=== PATIENT | male | born 1985 | race Caucasian/White ===

== ENCOUNTER → 2021-10-11 11:55 | Outpatient (CLI) | payer OTHER, SELFPAY ==
[2021-10-11 14:17] LABS: COVID19 -Nasal RAPID Negative (Negative)
== END ==
PROVIDERS: Referring Provider Physician Assistant; Visit Provider Physician Assistant
DX: Z20.822 Contact with and (suspected) exposure to COVID-19 (principal)
CPT/HCPCS: 87635

== ENCOUNTER 2021-10-14 07:42 | Day surgery (SDC) | payer OTHER, SELFPAY ==
[2021-10-12 12:13] VITALS: BMI 23.7
[2021-10-14] VITALS (11 sets, daily range): BP systolic 103–125; BP diastolic 42–78; PULSE 60–73; RESP 12–16; TEMP 36.4–36.6; O2SAT 97–100; BMI 23.7
--- NOTE | 2021-10-14 | DI.RAD.S_ITS ---
PROCEDURE: XR LUMBAR SPINE 1V INDICATIONS: L3-4 L5-S1 DISCETOMY TECHNIQUE: 1 views of the lumbar spine were acquired. COMPARISON: [facility] Outside Film, MR, MR LUMBAR SPINE WITHOUT CONTRAST, 07/01/2021, 7:16. [facility] Outside Film, CR, XR LUMBAR SPINE WITH OBLIQUES, 03/25/2020, 14:26. FINDINGS: Fluoroscopic images demonstrating markers overlying the spinous processes of L4 and L5. IMPRESSION: Fluoroscopic markers as above. Dictated by: Agnieszka White M.D. on 10/14/2021 at 15:00 Approved by: Agnieszka White M.D. on 10/14/2021 at 15:00
--- NOTE | 2021-10-14 07:56 | SUR.OPER ---
Prone on spine table, head in foam head support, padded chest and pelvic supports, gel pad at knees, lower legs supported by pillows; nipples, genitalia and toes free of pressure, arms secured on foam padded arm boards at <90 degrees abduction. Tape over blanket at thigh secured to table.
[2021-10-14] MEDS: LACTATED RINGERS 1,000 ML 42 ML IV (08:21)
--- NOTE | 2021-10-14 08:35 | PM.PREOP ---
Pre-operative Note COVID-19 COVID-19 status: Negative Result date/Date tested (Pos, Neg/Pending): 10/12/21 Interval Note History & Physical reviewed/Exam performed by Physician: Yes Changes to H&P: No
[2021-10-14] MEDS: CEFAZOLIN 2 GM/20 ML SYRINGE IV (09:00)
[2021-10-14] MEDS: EPINEPHrine 1 MG/ML 0.15 MG INJ (09:13)
[2021-10-14] MEDS: BUPIVACAINE 0.5% (PF) VIAL 30 ML INJ (09:13)
[2021-10-14] MEDS: methylPREDNISolone acet DEPO 40 MG/ML VIAL INJ (09:14)
--- NOTE | 2021-10-14 10:18 | P.OP_ITS ---
Operative Date/Time/Diagnoses Date of procedure: 10/14/21 Time of procedure: 08:45 Pre-op diagnosis: 1. L3-4, L5-S1 disc herniation 2. Lumbar radiculopathy Post-op diagnosis: same Procedure & Clinicians Procedure: 1. L3-4, L5-S1 left microdiscectomy through separate incisions 2. Utilization of microsurgical technique and operating microscope Same procedure as scheduled: Yes Indications: Patient has been having chronic back pain and worsening lumbar radiculopathy. Patient failed multiple conservative management with worsening pain weakness and numbness in her lower extremity. Patient has been having difficulty performing activity of daily living. After discussing risks benefits of treatment options, patient elected proceed with surgery. Surgeon: Sanju Gomez Churn Operator Margarine: Angelito Sung Click Yes if Unassisted: No Anesthesia Type: General Operative Notes Closure Type: primary Specimen(s): none sent Estimated Blood Loss (mL): 5 Blood products transfused: none Procedure in detail: Patient was seen in the preoperative area. Risks and benefits of the surgery was discussed with the patient. Informed consent was obtained from the patient and placed in the chart. Surgical site was marked. Patient was taken to the operative room. General anesthesia was administered. Prophylactic antibiotic was given to the patient less than 30 min before the incision was made. Patient was placed into a prone position on the Ronaldo table. Patient's back was then prepped and draped in the sterile fashion. Time-out was performed at this time. Using AP and lateral C-arm imaging the interval between L5-S1 was identified and marked on patient's back. A 1 inch incision 1 in from midline was made on the left side. The fascia was incised in line with skin incision. Globus MARS retractors was placed inside the incision and docked onto the L5 lamina. Using microsurgical technique and operating microscope, a [] laminotomy was performed using a Kerrison rongeur. Liagamentum flavum was resected at the site of the laminotomy. The disc space at L5-S1 was identified. Microdiscectomy was performed by incising the annulus with #11 blade. Microcurettes and pituitary was used to removed herniated disc fragments of disc from the epidural space. After the microdiskectomy at L5-S1 was completed, the area medial lateral superior and inferior to the area of the microdiskectomy was inspected and explored using a micro curette. No other impinging structure was identified. A separate incision was made over the L3-4 level. The MARs retractor was then redirected over the L3-4 level under x-ray guidance and docked on the L3 lamina. Using microsurgical technique and operating microscope, a L3 laminotomy was performed using a Kerrison rongeur. Liagamentum flavum was resected at the site of the laminotomy. The disc space at L3-4 was identified. Microdiscectomy was performed by incising the annulus with #11 blade. Microcurettes and pituitary was used to removed herniated disc fragments of disc from the epidural space. After the microdiskectomy at L3-4 was completed, the area medial lateral superior and inferior to the area of the microdiskectomy was inspected and explored using a micro curette. No other impinging structure was identified. The wound was then irrigated with sterile normal saline. 40 mg Depo-Medrol was placed into the epidural space. The deep fascia was closed with 1-0 Vicryl. The subcutaneous tissue was closed with 2-0 Vicryl. The skin was closed with skin manjinder. Patient tolerated the procedure well. There were no complications. Patient was transferred recovery room in stable condition. Complications: none Post-operative Condition: stable Disposition: PACU Plan for aftercare: Discharge to home
[2021-10-14] MEDS: fentaNYL 100 MCG/2 ML INJ IV ×2 (10:43→10:56)
[2021-10-14] MEDS: OXYCODONE IR 5 MG TABLET PO (11:00)
[2021-10-14] MEDS: ACETAMINOPHEN 325 MG TABLET 650 MG PO (11:02)
== END 2021-10-14 11:53 | disposition home or self-care (01) ==
PROVIDERS: Referring Provider Orthopaedic Surgery Orthopaedic Surgery of the Spine; Visit Provider Orthopaedic Surgery Orthopaedic Surgery of the Spine
PROC: (CPT 63030; principal; 2021-10-14 08:45)
DX: M51.16 Intervertebral disc disorders with radiculopathy, lumbar region (principal); F17.210 Nicotine dependence, cigarettes, uncomplicated
CPT/HCPCS: 63030; 63035; 72020; 76000; 82962; J0171; J0690; J1030; J1100; J2405; J2704; J3010

== ENCOUNTER 2023-12-28 11:19 | Inpatient (IN) | payer OTHER, SELFPAY ==
[2023-12-16 09:12] VITALS: BMI 23.1
[2023-12-28] VITALS (11 sets, daily range): BP systolic 115–135; BP diastolic 69–95; PULSE 61–89; RESP 12–20; TEMP 36.1–37.2; O2SAT 97–100; BMI 23.1; BMI 25.3
--- NOTE | 2023-12-28 | DI.RAD.S_ITS ---
PROCEDURE: XR LUMBAR SPINE 2-3V INDICATIONS: L5-S1 TLIF TECHNIQUE: 2 views of the lumbar spine were acquired. FINDINGS\IMPRESSION: Intraoperative images; see operative note for description 1 minutes 40 seconds of fluoro time. Two fluoroscopic images provided Approved by: Bigg Morales M.D. on 12/28/2023 at 16:05
[2023-12-28] MEDS: LACTATED RINGERS 1,000 ML 42 ML IV ×2 (12:01→15:32)
--- NOTE | 2023-12-28 12:16 | PM.OP.1 ---
Operative Date/Time/Diagnoses Date of procedure: 12/28/23 Time of procedure: 12:17
--- NOTE | 2023-12-28 12:17 | P.HP_ITS ---
History of Present Illness History of Present Illness Date Patient Seen: 12/28/23 Time Patient Seen: 12:17 Date of Onset of Symptoms: 10/04/23 Chief complaint: left sided drop foot Narrative: Mr. Brown is 2 years s/p microdiscectomy with recurrent disc herniation at L5-S1 level with newly developed drop foot on the left side. He did not respond to conservative management with persisting left LE weakness, numbness and radiating pain. After discussing treatment options with associated risks, patient elected to proceed with L5-S1 TLIF surgery. [facility] Medical History Current every day smoker History of COVID-19 (~2021) Asthma Lumbar disc herniation Back pain Surgical History History of surgery on arm Hx of microdiscectomy (10/14/21) Social History household members: none Smoking Status: Current some day smoker alcohol intake: current Meds Home Medications and Allergies Home Medications Medication Instructions Recorded Confirmed Type tramadol 50 mg tablet 50 mg PO BID PRN Pain 12/16/23 12/28/23 History varenicline 1 mg tablet (Chantix) 1.5 mg PO BID 12/16/23 12/28/23 History Allergies Allergy/AdvReac Type Severity Reaction Status Date / Time No Known Drug Allergies Allergy Verified 12/28/23 11:48 Review of Systems Review of Systems ROS: Yes All systems reviewed with the patient and are negative except as otherwise documented Exam Vital Signs (past 8 hours): - 12/28/23 12:02 Temperature 97.6 F Pulse Rate 61 Respiratory Rate 20 Blood Pressure 115/72 Pulse Oximetry 98 Oxygen Delivery Method Room Air Oxygen Delivery Method Room Air Neuro Other: + straight leg raise to LLE Motor strength 0/5 in L TA Sensiblity decreased to LLE in L4, L5, S1 dermatome Objective Imaging MRI - lumbar: My impression: MRI L-spine: large L5-S1 recurrent disc herniation with compression of left L4, L5, S1 nerve roots and thecal sac. Previous hemilaminectomy at L3-4, L5-S1 with epidural scarring. Assessment & Plan Assessment & Plan narrative: Mr. Brown is here for f/u of his lumbar MRI. On exam, he has significant drop foot and inability to extend his left toe since 6 weeks ago. He has 0/5 left EHL and 0/5 TA on the left with decreased sensibility to left L4, L5, S1 dermatome. I reviewed his MRI with him. He has a large extruded disc at L5-S1 with cephalad migration affecting left L4, L5 and S1 nerve roots with significant compression. I discussed treatment options with risks and benefits. Patient may benefit from L5-S1 TLIF surgery with repeat laminectomy and facetecomies, which will render his L5-S1 grossly unstable and require a fusion procedure at the same time. He had prior L3-4, L5-S1 microdiscectomy in 2020 with complete resolution of his symptoms then. He started to recurrence of symptoms in August and developed the drop foot on 09/20/2023.
--- NOTE | 2023-12-28 12:29 | P.OP_ITS ---
Operative Date/Time/Diagnoses Date of procedure: 12/28/23 Time of procedure: 12:30 Pre-op diagnosis: 1. L5-S1 recurrent disc herniation with previous microdiscectomy 2. left sided drop foot Post-op diagnosis: same Procedure & Clinicians Procedure: 1. L5-S1 Postero-lateral and posterior interbody fusion 2. L5-S1 interbody cage placement. 3. L5-S1 decompressive laminectomy with bilateral facetecomies 4. L5-S1 Posterior non-segmental instrumentation 5. [place] of bone marrow from iliac crest 6. Utilization of microsurgical technique and operating microscope Same procedure as scheduled: Yes Indications: Patient has been having chronic back pain and acute onset lumbar radiculopathy with left-sided drop foot and numbness tingling and pain to the left lower extremity since September of 2023. Patient was found to have a large extruded/herniated disc at L5-S1 with left- sided L4-L5 and S1 nerve root impingement. Patient is 2 years post microdiscectomy at L5-S1 level and has been doing well until 2 months ago. Patient failed multiple conservative management with worsening pain weakness and numbness in his lower extremity. Patient has been having difficulty performing activity of daily living. After discussing risks benefits of treatment options, patient elected proceed with surgery. Patient's surgery was not able to be scheduled sooner due to delay in patient's surgery authorization. Surgeon: Sanju Gomez Quality Facilitator: Jeanette White Click Yes if Unassisted: No Anesthesia Type: General Operative Notes Closure Type: primary Specimen(s): none sent Prosthetic devices, grafts, tissues, transplants, or devices: Globus revolve screws, Rise cage Estimated Blood Loss (mL): 50 Blood products transfused: none Procedure in detail: Patient was seen in the preoperative area. Risks and benefits of the surgery was discussed with the patient. Informed consent was obtained from the patient and placed in the chart. Surgical site was marked. Patient was taken to the operative room. General anesthesia was administered. Prophylactic antibiotic was given to the patient less than 30 min before the incision was made. Patient was placed into a prone position on the Ronaldo table. Patient's back was then prepped and draped in the sterile fashion. Time-out was performed at this time. Using AP and lateral C-arm imaging the interval between L5-S1 was identified and marked on patient's back. A 2 inch incision 2 in from midline was made on the left side first. The fascia was incised in line with skin incision. Globus MARS retractors was placed inside the incision and docked onto the L5 lamina. Using microsurgical technique and operating microscope, a L5 laminectomy and L5-S1 facetectomy was performed using a Kerrison rongeur. The laminectomy and facetectomy was performed in order to decompress patient's cauda equina as well as the nerve roots exiting at the L5-S1 level. The disc space at L5-S1 was identified. And a total diskectomy was performed at L5-S1 level. The endplates were decorticated using a rasp and shaver. Patient was found to have significant amount of epidural scarring from previous microdiskectomy which was carefully resected during the process of decompression. The thecal sac and the nerve roots were carefully protected during the process of the decompression as well as the diskectomy. The total diskectomy and decortication was performed at L5-S1 level in order to to accomplish a L5-S1 fusion. The local bone from the laminectomy and facetectomy was saved for local bone grafting. After the total diskectomy and decortication was completed, DBM bone graft material was combined with local bone that was harvested earlier. At this time, a separate skin is incision was made over the iliac crest. A Jamshidi needle was inserted into the iliac crest through a separate skin incision. 5 cc of bone marrow aspiration was obtained through the separate skin incision using a Jamshidi needle from the iliac crest. The bone marrow aspiration was combined with local bone and the DBM bone grafting material. The bone grafting material was placed into the L5- S1 interbody space along with a expandable cage. The cage was expanded to its maximum height using the torque limiting screwdriver. At this time a mirror image incision was made on the left side. The fascia was incised in line with the skin incision. Globus MARS retractor was inserted and docked onto the L5-S1 posterolateral gutter. Using the power drill, posterior- lateral decortication was performed at L5-S1 level until bleeding cortical bone was identified. The remaining bone grafting material was placed into the L5-S1 posterior lateral gutter he order to accomplish posterolateral fusion at the L5- S1 level. Using the double C-arm technique, pedicle screws were placed into the L5-S1 pedicles bilaterally. This was done by placing the Jamshidi needle into the pedicles, then placing the guidewires over the Jamshidi needle, and finally placing the cannulated screws over the guidewires bilaterally. After the pedicle screws were placed, 2 titanium rods was locked into the heads of the pedicle screws using locking caps and torque limiting screwdriver. After all the hardware was placed, and confirmed with AP and lateral C-arm imaging, the wound was then irrigated with sterile normal saline and packed with Ray-Elsa gauze for 3 min to accomplish hemostasis. After the gauze was removed the deep fascia was closed with #1 Vicryl suture. The subcutaneous layer was closed with 2-0 Vicryl. The skin was closed with skin manjinder. Patient tolerated the procedure well. There were no complications. Post-operative Condition: stable Disposition: PACU Plan for aftercare: Admit to inpatient hospital
[2023-12-28] MEDS: CEFAZOLIN 2 GM/100 ML PREMIX 100 ML IV ×2 (12:52→20:42)
[2023-12-28] MEDS: BUPIVACAINE LIPOSOME 266 MG/20 ML VIAL INJ (13:09)
[2023-12-28] MEDS: BUPIVACAINE 0.25% (PF) 30 ML, EPINEPHrine 0.15 MG INJ (13:09)
[2023-12-28] MEDS: fentaNYL 100 MCG/2 ML INJ IV (15:25)
[2023-12-28] MEDS: HYDROMORPHONE 1 MG INJ IV (15:30)
[2023-12-28] MEDS: hydrOXYzine 50 MG/ML INJ 25 MG IM (15:37)
[2023-12-28] MEDS: OXYCODONE/ACETAMINOPHEN 5/325 TABLET 1 TAB PO (15:44)
[2023-12-28] MEDS: LACTATED RINGERS 1,000 ML 125 ML IV (16:26)
[2023-12-28] MEDS: HYDROMORPHONE 0.5 MG INJ IV ×2 (16:42→20:41)
[2023-12-28] MEDS: OXYCODONE IR 10 MG TABLET PO ×3 (16:42→23:09)
[2023-12-28] MEDS: SENNOSIDES 8.6 MG TABLET 17.2 MG PO (20:42)
[2023-12-28] MEDS: DOCUSATE 100 MG CAPSULE PO (20:42)
[2023-12-28] MEDS: ACETAMINOPHEN 325 MG TABLET 650 MG PO (20:42)
[2023-12-29] MEDS: LACTATED RINGERS 1,000 ML 125 ML IV (00:20)
[2023-12-29] MEDS: HYDROMORPHONE 0.5 MG INJ IV ×4 (00:37→08:57)
--- NOTE | 2023-12-29 01:19 | PC.NURSE ---
Pt. ambulated in the hallway x2 this shift.
[2023-12-29] MEDS: OXYCODONE IR 10 MG TABLET PO ×2 (01:54→06:00)
[2023-12-29] MEDS: ACETAMINOPHEN 325 MG TABLET 650 MG PO ×2 (01:55→06:52)
[2023-12-29] MEDS: CEFAZOLIN 2 GM/100 ML PREMIX 100 ML IV (04:38)
[2023-12-29 05:20] VITALS: BP 107/64; PULSE 72; RESP 18; TEMP 36.5; O2SAT 96
--- NOTE | 2023-12-29 07:51 | PM.DS.1 ---
History of Present Illness History of Present Illness Date Patient Seen: 12/29/23 Time Patient Seen: 07:51 Chief complaint: Back pain Narrative: Back pain has been moderate to severe. Denies fever or chills. No nausea or vomiting. Patient has friends I will be staying with him. Patient has been up out of bed. Patient able to urinate on his own. Discharge Providers Provider Date of admission: 12/28/23 11:19 Discharge Date: 12/29/23 Primary care physician: FELI Verma Consults: 12/28/23 16:06 Consult to Occupational Therapy Evaluate & Treat Comment: Physician Instructions: Evaluate and treat Consult to Physical Therapy Evaluate & Treat Comment: Physician Instructions: Evaluate and Treat Discharge provider: Angelito Sung PA-C Summary Hospital Course Discharge Diagnosis: 1. L5-S1 recurrent disc herniation with previous microdiscectomy 2. left sided drop foot Hospital Course: 1. L5-S1 Postero-lateral and posterior interbody fusion 2. L5-S1 interbody cage placement. 3. L5-S1 decompressive laminectomy with bilateral facetecomies 4. L5-S1 Posterior non-segmental instrumentation 5. [place] of bone marrow from iliac crest 6. Utilization of microsurgical technique and operating microscope Same procedure as scheduled: Yes Indications: Patient has been having chronic back pain and acute onset lumbar radiculopathy with left-sided drop foot and numbness tingling and pain to the left lower extremity since September of 2023. Patient was found to have a large extruded/herniated disc at L5-S1 with left-sided L4-L5 and S1 nerve root impingement. Patient is 2 years post microdiscectomy at L5-S1 level and has been doing well until 2 months ago. Patient failed multiple conservative management with worsening pain weakness and numbness in his lower extremity. Patient has been having difficulty performing activity of daily living. After discussing risks benefits of treatment options, patient elected proceed with surgery. Patient's surgery was not able to be scheduled sooner due to delay in patient's surgery authorization. Surgeon: Sanju Gomez Fretted String Instrument Repairer: Jeanette White Click Yes if Unassisted: No Anesthesia Type: General Operative Notes Closure Type: primary Specimen(s): none sent Prosthetic devices, grafts, tissues, transplants, or devices: Globus revolve screws, Rise cage Estimated Blood Loss (mL): 50 Blood products transfused: none Patient admitted to the hospital for the above-mentioned procedure. Patient consented to the same. Patient underwent L5-S1 posterolateral and interbody fusion December 28, 2023. Patient has been up in his room walking. Urinating on his own. Pain is under control. Patient will be discharged home after physical therapy if safe for home environment. Exam Vital Signs (past 8 hours): - 12/29/23 05:20 Temperature 97.7 F Pulse Rate 72 Respiratory Rate 18 Blood Pressure 107/64 Pulse Oximetry 96 Oxygen Delivery Method Room Air Oxygen Flow Rate 0 Narrative Exam Narrative: 38-year-old male resting comfortably in bed in no apparent distress. 5/5 strength right lower extremity. Patient has weakness with great toe extension on the left. Slightly diminished sensation over the dorsum of the left foot compared to the right. Patient able to plantar flex and dorsiflex left foot. Const General: cooperative and comfortable Nutritional Appearance: average body habitus Orientation: oriented x3 Chest Chest: normal inspection of the chest and normal palpation of entire chest wall PFSH Medical History Current every day smoker History of COVID-19 (~2021) Asthma Lumbar disc herniation Back pain Surgical History History of surgery on arm Hx of microdiscectomy (10/14/21) Social History household members: none Smoking Status: Current some day smoker alcohol intake: current Discharge Assessment & Plan Assessment and Plan Assessment: Patient progressing as expected status post L5-S1 fusion Plan of Treatment: Multimodal pain management Keep dressing clean and dry Limit bending, twisting, lifting Follow up outpatient Orthopedics in 2 weeks Discharge home today after physical therapy. Discharge Plan Discharge orders & Medications Discharge Orders: Discharge (Order); Ordered 12/29/23 Ordered By: Angelito Sung Prescriptions: New acetaminophen 325 mg Tablet 650 mg PO Q6H PRN (Reason: Fever/Mild Pain (1-3)) Qty: 60 0RF oxycodone 10 mg Tablet 10 mg PO Q3H PRN (Reason: Pain, Severe (7-10)) Qty: 40 0RF Continued varenicline [Chantix] 1 mg Tablet 1.5 mg PO BID Discontinued tramadol 50 mg Tablet 50 mg PO BID PRN (Reason: Pain) Follow up/Referrals: Real Juarez ARNP [Primary Care Provider] - Sanju Gomez MD [Physician] - (2 weeks as scheduled) Diet/Activity/Treatments Diet: Diet as Tolerated Activity: Limit bending, twisting, lifting Skin/Wound/Dressing Care Report to your healthcare provider any signs of infection, such as:: chills, fever, night sweats, increased pain, unusual drainage and unusual redness Dressing: Keep dressing clean and dry Visit Report/Discharge Packet Instructions: DI for Prescription Opioid Use, DI for Transforaminal Lumbar Interbody Fusion Stand Alone Forms: Patient Portal/API, Stroke Signs & Symptoms Discharge Data Primary Care Provider: Real Juarez
--- NOTE | 2023-12-29 08:37 | PT.IIE ---
Current Diagnoses Other intervertebral disc displacement, lumbar region (12/28/23) Other specified postprocedural states (12/28/23) Surgery Performed Operation Date: 12/28/23 13:15 Actual Procedures p L5-S1 TLIF(Not Applicable) - Sanju Gomez MD Surgical History (Last Reviewed 12/29/23 @ 07:54 by Angelito Sung PA-C) History of surgery on arm Hx of microdiscectomy (10/14/21) Medical History (Last Reviewed 12/29/23 @ 07:54 by Angelito Sung PA-C) Asthma Back pain Current every day smoker History of COVID-19 (~2021) Lumbar disc herniation Physical Therapy Inpatient Evaluation/Re-Eval M1 PT/OT-IP Prior Functional Status Start: 12/29/23 08:10 Freq: NEEDED Status: Active Protocol: Document 12/29/23 08:10 MB (Rec: 12/29/23 08:37 MB [id number]) Medical Review Prior Functional Status Medical History Reviewed Yes Diet/Fluid Consistency Regular Communication WNLs Mobility and Gait I Activities of Daily Living and IADL's I Prior Functional Level (Other details) 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 Additional Social History Comment Portable shower seat M2 PT-IP Current Condition Start: 12/29/23 08:10 Freq: NEEDED Status: Active Protocol: Document 12/29/23 08:10 MB (Rec: 12/29/23 08:37 MB [id number]) Physical Therapy Current Condition Current Condition Evaluation Date 12/29/23 Treatment Diagnosis L5-S1 fusion, history of discectomy Onset Date 12/28/23 M3 PT-IP Subjective Start: 12/29/23 08:10 Freq: NEEDED Status: Active Protocol: Document 12/29/23 08:10 MB (Rec: 12/29/23 08:37 MB [id number]) Subjective Physical Therapy Visit Type Type Initial Evaluation Visit Start Time 08:10 Visit Stop Time 08:24 Number of DRUG COORDINATOR Visits 0 Physical Therapy Visit Comments Patient Comments Pt states that he is ready to go home and that he has some changes and increased sensation in his left distal leg post-op. Therapy Pain Assessment Pain When Pain Assessed At Rest Pain Present Pain Present Pain Reported Location back Intensity 1 Scale Used Evi (Faces) M4 PT-IP Mobility and Gait Start: 12/29/23 08:10 Freq: NEEDED Status: Active Protocol: Document 12/29/23 08:10 MB (Rec: 12/29/23 08:37 MB [id number]) PT-Bed Mobility Assessment Rolling Type of Rolling Log Rolling Level of Assist Independent Supine to Sit Supine to Sit Independent Sit to Supine Sit to Supine Independent Scooting Scooting to Edge of Bed Independent PT-Transfer Assessment Sit to and From Stand Sit to and from Stand Independent Equipment Transfer Assistive Device None Orthotic/Prosthetic Devices or Brace: No Transfer Ability Level of Assist Independent Gait Assessment Gait Gait Assistance Required: Independent Distance (Feet) 100 Able to Maintain Weight Bearing Status Yes During Gait Assistive Devices Assistive Device None Orthotic/Prosthetic Devices or Brace: No Factors Limiting Gait Function Factors Limiting Gait Function Abnormal Tonal Influences, Decreased Strength Comments Gait Comments Pt has tone changes in distal LLE with some functional foot drop that is more noticeable with gait returning to room ( after being up on his feet greater than 100'). He is I with gait and has wide LUTHER and good shaye. Stair Climbing Assessment Evaluation Level of Assist On Stairs Independent Devices Stair Climbing Assistive Devices Left Railing,Right Railing Technique/Endurance Stair Climbing Direction Ascend and Descend Stair Climbing Technique Step Over Step Number of Steps Climbed 3 Query Text: Stair Climbing Set # Repetitions (reps) 1 PT-Balance Assessment Sitting Balance and Reactions Static Sitting Balance Ability Normal Dynamic Sitting Balance Ability Normal Standing Balance and Reactions Static Standing Balance Ability Normal Dynamic Standing Balance Ability Good Device Used None M5 PT-IP Objective Assessments Start: 12/29/23 08:10 Freq: NEEDED Status: Active Protocol: Document 12/29/23 08:10 MB (Rec: 12/29/23 08:37 MB [id number]) Orientation Orientation/Cognition Level of Alertness Alert Orientation Name,Age,Birthday,Month,Date, Year,Day of Week,Place, Situation Language Function Ability No Deficits Noted Safety Awareness Understands Safety Issues Memory Description No Deficits Noted Gross Range of Motion Upper Extremity ROM Assessment Within Functional Limits Impairments Pt has history of left UE nerve surgery and he has a scar near his biceps Lower Extremity ROM Assessment Left Impaired Impairments Scar down back of left leg from previous grafting and pt has some tonal changes in ankle PFs and decreased ankle DF and toe extension Strength Lower Extremity Strength Assessment Left Impaired Ankle Does not follow MMT commands/ tends to keep trying to wiggle ankle and toes Sensation Assessment Sensation Gross Sensation Left LE Impaired Light Touch Impaired Proprioception (Position) Impaired Sensation Description Paresthesia,Numbness M6 PT-IP Treatment Start: 12/29/23 08:10 Freq: NEEDED Status: Active Protocol: Document 12/29/23 08:10 MB (Rec: 12/29/23 08:37 MB [id number]) Physical Therapy Treatment Education Education Provided Safety Equipment Issued Equipment Type and Company OT is taking in post-op packet to review, log rolling with PT, pt with history of microdisectomy M7 PT-IP Assessment and Plan Start: 12/29/23 08:10 Freq: NEEDED Status: Active Protocol: Document 12/29/23 08:10 MB (Rec: 12/29/23 08:37 MB [id number]) PT Summary Assessment and Plan Potential Rehabilitation Potential Good Status of Condition at Evaluation Evolving Summary Impairments Pain,Strength,Balance,Tone Progress Towards Goals Safe For Discharge Assessment Summary Pt is a 38 y/o male presenting with I bed mobility, transfers, gait, stair mobility post-op L5-S1 fusion last date. He has a history of microdiscectomy. He has OPPT set-up 6 weeks out in [place] where he lives. 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 He is I with log rolling today after education. OT following PT to review post-op booklet with other back precautions. Pt wishing to eat after PT. Frequency of Treatment Frequency Of Treatment Discharge Precautions Lumbar Precautions Log Roll,No Twisting,Limit Bending,Lifting Restriction of 10 lbs,Gait Belt above Incisional Area Weight Bearing Status Weight Bearing Status Weight Bear as Tolerated Recommendations To Nursing Amount of Assist Needed Standby Assistance Discharge Recommendations PT Discharge Recommendations Outpatient PT Transportation Needs at Discharge Private Vehicle
--- NOTE | 2023-12-29 08:45 | OT.IP.EVAL ---
Current Diagnoses Other intervertebral disc displacement, lumbar region (12/28/23) Other specified postprocedural states (12/28/23) Surgery Performed Operation Date: 12/28/23 13:15 Actual Procedures p L5-S1 TLIF(Not Applicable) - Sanju Gomez MD Past Medical History (Last Reviewed 12/29/23 @ 07:54 by Angelito Sung PA-C) Asthma Back pain Current every day smoker History of COVID-19 (~2021) Lumbar disc herniation Surgical History (Last Reviewed 12/29/23 @ 07:54 by Angelito Sung PA-C) History of surgery on arm Hx of microdiscectomy (10/14/21) Occupational Therapy Inpatient Evaluation/Re-Eval M1 PT/OT-IP Prior Functional Status Start: 12/29/23 08:47 Freq: NEEDED Status: Active Protocol: Document 12/29/23 08:15 [facility] (Rec: 12/29/23 08:57 [facility] [id number]) Medical Review Prior Functional Status Medical History Reviewed Yes Diet/Fluid Consistency Regular Communication WNLs Mobility and Gait I Activities of Daily Living and IADL's I Prior Functional Level (Other details) 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 Additional Social History Comment Portable shower seat M2 OT-IP Current Condition Start: 12/29/23 08:47 Freq: Status: Active Protocol: Document 12/29/23 08:15 [facility] (Rec: 12/29/23 08:57 [facility] [id number]) Occupational Therapy Current Condition Current Condition Evaluation Date 12/29/23 Treatment Diagnosis S/P L5-S1 back sx Diagnosis Onset Date 12/28/23 Post Operative Precautions Lumbar Precautions Log Roll,No Twisting,Limit Bending,Lifting Restriction of 10 lbs,Gait Belt above Incisional Area M3 OT- IP Subjective and Pain Start: 12/29/23 08:47 Freq: Status: Active Protocol: Document 12/29/23 08:15 [facility] (Rec: 12/29/23 08:57 [facility] [id number]) OT- Subjective Occupational Therapy Visit Type Type Initial Evaluation Visit Start Time 08:12 Visit Stop Time 08:45 Occupational Therapy Visit Comments Patient Comments Pt agreed to go over OT needs for OT eval. Patient/Caregiver Goals TO go home OT Pain Assessment Pain When Pain Assessed During Mobility Pain Present Pain Present Pain Reported M4 OT- IP ADL's Start: 12/29/23 08:47 Freq: Status: Active Protocol: Document 12/29/23 08:15 [facility] (Rec: 12/29/23 08:57 [facility] [id number]) OT VOU-Eakc-Tsjrisl General Evaluation Self-Feeding Ability Independent OT ADL-Grooming General Evaluation Grooming Ability Independent OT ADL-Oral Care Comments Oral Care Comments Educated to spit into a cup or hinge at his hips to spit to best follow his back precautions. OT ADL-Dressing General Eval Lower Body Dressing Ability Minimal Assistance Comments OT Dressing Comments Able to show pt assembly detailer and sock aid to increased ease for LB dressing needs. OT ADL-Toileting Comments OT Toileting Comments Suggested easier to stand and wipe. Also use of wet wipes will be helpful. Pt states has a low toilet and to get a raised toilet seat. OT ADL-Bathing Comments OT Bathing Comments Pt states has a shower stool. Suggested to have friend cover the dressing prior to showering. Pt state he will be fine. M5 OT- IP IADL's Start: 12/29/23 08:47 Freq: Status: Active Protocol: Document 12/29/23 08:15 [facility] (Rec: 12/29/23 08:57 [facility] [id number]) OT-Instrumental Activities of Daily Living Deficits IADL Deficits Identified Deficits Home Safety Awareness Awareness of Need for Assistance at Home Decreased Awareness Ability to Problem Solve Emergency Able to Problem Solve Situations Medication Management Medication Management No Deficits Identified Money Management Money Management No Deficits Identified Meal Preparation Meal Preparation Comments Would be helpful to have assist. [place] Measurer [place] Measurer Comments WOuld be helpful for pt to have assist. M6 OT- IP Functional Cognition Start: 12/29/23 08:47 Freq: Status: Active Protocol: Document 12/29/23 08:15 [facility] (Rec: 12/29/23 08:57 [facility] [id number]) Cognitive Factors Limiting Selfcare Function Cognitive Ability Level of Alertness Alert Patient Orientation Name,Age,Birthday,Month,Date, Year,Day of Week,Place, Situation Attention Span Ability Capable of Focused Attention, Capable of Sustained Attention Ability to Follow Commands Able to Follow One Step Commands Safety Awareness Underestimates Need for Assistance Cognitive Comments Cognitive Assessment Comments Pt able to follow commands but a little insistent on his needs. Pt not open to having someone to assist to cover his dressing while showering and feels he is able to cross his legs for dressing needs without much difficulty or pain-able to suggest use of LB dressing equipment. OT- Vision and Hearing OT- Hearing Assessment OT- Hearing Assessment WFL OT- Vision Assessment Visual Acuity WFL Visual Attentiveness WFL M7 OT- IP Mobility and Balance Start: 12/29/23 08:47 Freq: Status: Active Protocol: Document 12/29/23 08:15 [facility] (Rec: 12/29/23 08:57 [facility] [id number]) OT-Transfer Assessment Sit to and From Stand Sit to and from Stand Independent Transfers Transfer Ability Standby Assistance Technique Transfer Destination Chair Transfer Technique Stand Step Pivot Devices Transfer Assistive Devices None Comments Mobility Comments Pt a little unsteady on his feet with no device and encouraged to use especially on uneven surfaces . went over log rolling and positioning need with pt. OT- Balance Assessment Sitting Balance and Reactions Static Sitting Balance Ability Normal Dynamic Sitting Balance Ability Normal Standing Balance and Reactions Static Standing Balance Ability Good Dynamic Standing Balance Ability Fair M9 OT- IP Assessment and Plan Start: 12/29/23 08:47 Freq: Status: Active Protocol: Document 12/29/23 08:15 [facility] (Rec: 12/29/23 08:57 [facility] [id number]) OT Summary Assessment and Plan Potential Rehabilitation Potential Good Analytic Complexity at Evaluation Low Summary OT Impairments Balance,Functional Mobility, Dressing,Bathing,Shower Transfers Progress Towards Goals Progressing Toward Goals Assessment Summary Pt low complexity and main barriers are pain, needing to slow down and use of FWW especially for uneven terrain and will benefit from LB dressing equipment and assist for showering needs. Pt to go home with friends. Goals Dressing Goal Independent,Strength And Conditioning Coach,Sock Aid Toileting Goal Independent Bathing Goal Independent Toilet Transfer Goal Independent Shower Transfer Goal Independent Days to Meet Goals 3 Frequency of Treatment Frequency Of Treatment Once a Day Treatment Plan OT Treatment Plan ADL Training,Functional Mobility,Patient/Family Education,Discharge Planning Discharge Recommendations OT Discharge Recommendations Home with Assistance Home Equipment Needs LB dressing equipment, RTS Transportation Needs at Discharge Private Vehicle
[2023-12-29] MEDS: DOCUSATE 100 MG CAPSULE PO (08:57)
[2023-12-29] MEDS: SODIUM CHLORIDE 0.9% FLUSH 10 ML IV (08:57)
--- NOTE | 2023-12-29 09:14 | CM.DANOTE ---
Initial DCP Assessment Visit Reviewed EMR and met with RN re: pt's medical status and anticipated d/c plan. Met with pt/RN at bedside briefly, he was preparing to d/c. His friend is also present in the room and will plan to transport pt home. No identified DCP needs identified at this time. Payor: [facility] Administrators Attending: Dr. Gomez Pt is a 38 year-old M admitted following his lumbar disc surgery post-op day 1. He endorses a hx of worsening/debilitating lower back pain which has significantly limited his mobility and function, despite having had multiple chiropractor and massage visits over the last year. He is single, lives in [place] with friends. Plan is to d/c today, f/u with Ortho in 2-weeks for wound check, OP PT. Discharge Planning/Care Management CM Discharge Assessment Start: 12/29/23 09:13 Freq: Status: Active Protocol: Document 12/29/23 09:13 DPL (Rec: 12/29/23 09:14 DPL [id number]) Discharge Planning Assessment Assigned Supply Chain Buyer MATT Rose Advance Directives? No History Provided By Patient,Medical Record Has Patient been admitted in last 30 No days? Prior Living Arrangements House Household Members friend(s),none Type of transporation used prior to Drives own vehicle admit Independent with ADL's Yes Is patient alert and oriented? Yes Caregiver for Another No DME Already Rented / Owned Bath Bench,FWW / Walker Comment No identified d/c needs at this time. Barriers to Discharge No Referrals Initiated None needed Whiteboard Updated in Patient Room with Yes name and ext. # of Supply Chain Buyer Review Status In Process Please Provide Date Initial DC 12/29/23 Assessment Was Performed Pre-Anesthesia Assessment Start: 12/16/23 09:12 Freq: Status: Complete Protocol: Document 12/16/23 09:12 CAB (Rec: 12/16/23 09:33 CAB [id number]) Pre-Anesthesia Assessment Patient Information Reviewed Via Phone Assessment Assessment Completed With Patient Comment Has not done Primary Care Provider Real Juarez Seen Specialist in Last 12 Months Yes Specialist Seen Orthopedist Primary Language Nigerien Lining Cementer Required No Height 187.96 cm Weight 81.647 kg Body Mass Index (BMI) 23.1 Hearing Ability Normal Visual Impairment No Limitations Visual Assist None Dentition Type Teeth, Natural Present Barriers to Learning None Hx Anesthesia Reactions No Hx Family Anesthesia Reaction No Hx Malignant Hyperthermia No Hx Blood Transfusions No Hx Blood Transfusion Reaction No Anesthesia Review Requested No Field Insurance Sales Manager No alcohol intake current alcohol intake frequency a few times a week Smoking Status Current some day smoker Smoking packs per day 10 Has it been 2 weeks or less since Yes patient quit smoking how long ago did patient quit smoking Currently using Chantix Substance Use Type marijuana Comment Advised not to smoke marijuana 24 hours prior Pain Present Pain Reported Musculoskeletal Symptoms Abnormal Gait,Back Pain, Difficulty Walking,Numbness, Radiating Pain into Limb, Tingling History of Falling (Recent or History of No ) Patient is completely paralyzed or No completely immobile Mental Status Oriented to own ability Comment Balance issues Is patient on oxygen? No Does patient have LGOVER/SOB No Hx Sleep Apnea No CPAP/BIPAP use not prescribed Currently Taking a Beta Coral No Hx Chest Pain No Hx SOB No Hx Syncope or Dizziness No Anti-Coagulant Therapy No Has a [employer] Operations Specialist No Cardiac Testing No Hx Pacemaker/ICD No Pacemaker Rep Required? No Cardiac Clearance Received Not Applicable Diet Type At Home Regular Dysphagia No Gastrointestinal Symptoms Constipation Genitourinary Symptoms Dribbling Chronic UTI No Urinary Catheter Present No Hx Urinary Self Catheterization No Diabetes No Hx Drug Resistant Organism No Presence of External or Internal Medical No Devices Received a COVID vaccine? Yes Received all doses? Yes Marital Status Single Lives With none Current Living Arrangements House Number of Floors (Floors) Two Floors Support System Parent(s) Does the Patient Have Assistance After Yes: Pt may DC to parents Surgery house Patient Discharge Plan Description Return Home Comment Pt advised possible overnight or same day surgery per surgeon Feels Safe in Current Environment Yes Been Physically Hurt or Threatened By a No Person in Current Environment Do you have thoughts of harming yourself None or others? Are you currently considering suicide? No Do you have a plan to hurt yourself or No Plan others? Do You Have Any Spiritual Beliefs That No May Affect Your HC Choices? Do You Have Any Cultural Practices That No May Affect Your HC Choices? Who Can We Speak to About Patient's Care Family, friends Identifying Code for Release of Patient Declines to issue Information Health Care Proxy/Next of Kin Chadd Vitor) Health Care Proxy Emergency Contact Name Chadd ChouJeffery) Emergency Contact Advance Directives? No Power of Talent Development Manager No PAC Instructions Durable medical equipment, Medications to take/avoid, Nasal antibiotic,No ETOH/ petroleum product on skin DOS, NPO,Post-op transportation,Pre -surgical wash,Sensory aids, Sturdy shoes/comfortable clothes,Do not bring valuables and remove jewelry
== END 2023-12-29 09:20 | disposition home or self-care (01) | DRG 455 ==
PROVIDERS: Admitting Provider Orthopaedic Surgery Orthopaedic Surgery of the Spine; PCP Nurse Practitioner Primary Care; Referring Provider Orthopaedic Surgery Orthopaedic Surgery of the Spine; Visit Provider Orthopaedic Surgery Orthopaedic Surgery of the Spine
PROC: 0SG30AJ Fusion of Lumbosacral Joint with Interbody Fusion Device, Posterior Approach, Anterior Column, Open Approach (ICD-10-PCS; principal; 2023-12-28 13:15)
DX: M51.27 Other intervertebral disc displacement, lumbosacral region (principal); M21.372 Foot drop, left foot; M48.07 Spinal stenosis, lumbosacral region; M96.1 Postlaminectomy syndrome, not elsewhere classified; Z98.890 Other specified postprocedural states
CPT/HCPCS: 72100; 76000; 97161; 97165; 97530; 97535; C1831; C9290; J0171; J0330; J0690; J1100; J1170; J2250; J2405; J2704; J3010; J3410